=== PATIENT | male | born 1990 | race Two or more races ===

== ENCOUNTER 2017-03-12 15:01 | Emergency (ER) | payer OTHER ==
[~2017-03-12] VITALS: Ht 180.3 cm; Wt 61.2 kg
[2017-03-12] MEDS ORDERED: NKM (15:12)
[2017-03-12] MEDS ORDERED: Tetanus/Diptheria/Pertussis Vaccine 0.5ml Syr IM ONE (15:30)
[2017-03-12] MEDS ORDERED: Bacitracin Oint UD TOPIC ONE (15:30)
--- NOTE | 2017-03-12 15:32 | Emergency Room Report ---
History of Present Illness General Chief Complaint: Skin Rash/Abscess Source: Patient Present Illness HPI 26-year-old male presents to the emergency department complaining of erythema, swelling, tenderness that he rates as 2/10 in severity to the left upper extremity progressive x2 days. He states that he recently got a new tattoo placed in the left upper extremity 2 days ago and he has had progressive symptoms since. Patient denies fevers, chills, swollen tender lymph nodes. He denies trauma or fall. Patient does not know when his last tetanus vaccination was. Denies numbness tingling or loss of sensation or gross motor movements of the extremities, incontinence of bowel or bladder. Denies CP, Palpitations, LOC , AMS, dizziness, Changes in Vision, Sensation, paresthesias, or a sudden severe headache. Allergies: Coded Allergies: No Known Allergies (Unverified , 03/12/17) Patient History Past Medical History: see triage record Past Surgical History: none Pertinent Family History: none Reviewed Nursing Documentation: PMH: Agreed, PSxH: Agreed Nursing Documentation-PMH Past Medical History: No History, Except For Review of Systems All Other Systems: negative except mentioned in HPI Physical Exam Vital Signs Date Time Temp Pulse Resp B/P (MAP) Pulse Ox O2 Delivery O2 Flow Rate FiO2 03/12/17 15:07 97.9 66 17 129/78 100 Room Air Sp02 EP Interpretation: reviewed, normal General Appearance: no apparent distress, alert, GCS 15, non-toxic Head: normocephalic, atraumatic Eyes: bilateral eye normal inspection, bilateral eye PERRL ENT: hearing grossly normal, normal voice Neck: full range of motion Respiratory: lungs clear, normal breath sounds, speaking full sentences Cardiovascular #1: regular rate, rhythm, normal capillary refill Musculoskeletal: back normal, gait/station normal, normal range of motion, tender - ttp to the superficial distal humeral area of the left UE. erythema noted. Neurologic: alert, oriented x3, responsive, motor strength/tone normal, sensory intact, speech normal Skin: no rash, warm/dry, well hydrated, other - erythema with increased temperature to palpation to the distal humeral area of the left UE, about the site of a new tattoo. Medical Decision Making PA Attestation Dr. bernard is my supervising Physician whom patient management has been discussed with. Diagnostic Impression: Primary Impression: Cellulitis Qualified Codes: L03.114 - Cellulitis of left upper limb ER Course 26-year-old male presents to the emergency department complaining of erythema, swelling, tenderness that he rates as 2/10 in severity to the left upper extremity progressive x2 days. He states that he recently got a new tattoo placed in the left upper extremity 2 days ago and he has had progressive symptoms since. Patient denies fevers, chills, swollen tender lymph nodes. He denies trauma or fall. Patient does not know when his last tetanus vaccination was. Denies numbness tingling or loss of sensation or gross motor movements of the extremities, incontinence of bowel or bladder. Denies CP, Palpitations, LOC , AMS, dizziness, Changes in Vision, Sensation, paresthesias, or a sudden severe headache. Ddx considered but are not limited to cellulitis, dermatitis, tinea infection, fracture, d/L, gout Vital signs: are WNL, pt. is afebrile H&PE are most consistent with cellulitis ORDERS: none required at this time, the diagnosis is clinical ED INTERVENTIONS: -Tdap vaccination is administered. -Bacitracin is applied. DISCHARGE: At this time pt. is stable for d/c to home. Will provide printed patient care instructions, and any necessary prescriptions. Care plan and follow up instructions have been discussed with the patient prior to discharge. Last Vital Signs Date Time Temp Pulse Resp B/P (MAP) Pulse Ox O2 Delivery O2 Flow Rate FiO2 03/12/17 15:07 97.9 66 17 129/78 100 Room Air Disposition: HOME, SELF-CARE Condition: Stable Scripts Cephalexin* (KEFLEX*) 500 Mg Capsule 500 MG ORAL EVERY 12 HOURS for 7 Days, #14 CAP 0 Refills Prov: Harriett Wilcox 03/12/17 Bacitracin/Polymyxin B Sulfate (BACITRACIN-POLYMYXIN OINTMENT) 28.35 Gm Oint...g. 1 APPLIC TP BID, #28.3 GM Prov: Harriett Wilcox 03/12/17 Patient Instructions: Cellulitis Additional Instructions: Take medications as directed. Follow up with a Primary Care Provider in 3-5 days, even if your symptoms have resolved. --Please review list of primary care clinics, if you do not already have a primary care provider Return sooner to ED if new symptoms occur, or current symptoms become worse. - Please note that this Emergency Department Report was dictated using [email or web address] controller technology software, occasionally this can lead to erroneous entry secondary to interpretation by the dictation equipment. Harriett Wilcox Mar 12, 2017 15:32
[2017-03-12] MEDS ORDERED: BACITRACIN-P28.35 GM TP (15:33)
[2017-03-12] MEDS ORDERED: CEPHALEXIN500 MG ORAL (15:33)
[2017-03-12 15:45] VITALS: BP 117/74
== END 2017-03-12 15:45 | disposition home or self-care (01) ==
LOC: EMR 15:30
DX: L03.114 Cellulitis of left upper limb (principal); Z23 Encounter for immunization
CPT/HCPCS: 90471; 90715; 99283